=== PATIENT | male | born 1970 | race African-American/Black ===

== ENCOUNTER 2021-10-24 03:12 | Emergency (ER) | payer MEDICAID, OTHER ==
[~2021-10-24] VITALS: Ht 182.9 cm; Wt 97.1 kg
[2021-10-24 03:26] VITALS: BP 149/69
== END 2021-10-24 06:48 | disposition left against medical advice (07) ==
LOC: ER 03:12
DX: Z53.21 Procedure and treatment not carried out due to patient leaving prior to being seen by health care provider (principal)
CPT/HCPCS: 93005

== ENCOUNTER 2022-08-20 18:14 | Emergency (ER) | payer OTHER ==
[~2022-08-20] VITALS: Ht 185.4 cm; Wt 104.3 kg
[2022-08-20 18:21] VITALS: BP 134/91
[2022-08-20 18:51] LABS: BASOPHILS % 0.8 % (0.0-2.0); EOSINOPHILS % 6.5 % (0.0-5.0); HEMATOCRIT. 38.5 % (42.0-52.0); HEMOGLOBIN. 12.7 g/dL (14.0-18.0); LYMPHOCYTES % 48.8 % (20.0-50.0); MEAN CORPUSCULAR HEMOGLOBIN 27.6 pg (28.0-32.0); MEAN CORPUSCULAR VOLUME 83.6 fL (80.0-94.0); MEAN PLATELET VOLUME 9.5 fl (7.4-10.4); MONOCYTES % 10.8 % (2.0-8.0); NEUTROPHILS % 33.1 % (40.0-76.0); PLATELET 176 x1000/uL (130-400); RED CELL DISTRIBUTION WIDTH 15.5 % (11.6-14.6)
[2022-08-20 18:56] LABS: CHLORIDE 105 mEq/L (98-107)
[2022-08-20] MEDS ORDERED: FAMO-135 MT (22:36)
== END 2022-08-20 23:08 | disposition home or self-care (01) ==
LOC: ER 18:14
DX: R07.89 Other chest pain (principal); M25.511 Pain in right shoulder; I10 Essential (primary) hypertension
CPT/HCPCS: 36415; 71045; 80053; 84484; 85025; 93005; 99285

== ENCOUNTER 2022-10-28 14:58 | Emergency (ER) | payer OTHER ==
[~2022-10-28] VITALS: Ht 182.9 cm; Wt 105.0 kg
[~2022-10-28 14:58] MED LIST: FAMO-135 MT
[2022-10-28 15:11] VITALS: TEMP 98.7; O2SAT 99
[2022-10-28 15:45] VITALS: BP 122/83; PULSE 79; RESP 16
[2022-10-28] MEDS ORDERED: KETOROLAC 60MG/2ML VIAL IM ONE (15:45)
[2022-10-28] MEDS ORDERED: T3 PO (16:21)
[2022-10-28] MEDS ORDERED: MELO-105 MT (16:21)
== END 2022-10-28 17:39 | disposition home or self-care (01) ==
LOC: ER 14:58
DX: M25.562 Pain in left knee (principal); I10 Essential (primary) hypertension
CPT/HCPCS: 73560; 96372; 99283; J1885; Z7610; L1830

== ENCOUNTER 2022-12-22 09:17 | Emergency (ER) | payer OTHER ==
[~2022-12-22] VITALS: Ht 188 cm; Wt 100.0 kg
[~2022-12-22 09:17] MED LIST changes: +MELO-105 MT; +T3 PO
[2022-12-22 09:42] VITALS: O2SAT 98
[2022-12-22] MEDS ORDERED: ACETAMINOPHEN 325MG TABLET PO ONE (09:45)
[2022-12-22 10:05] LABS: CLARITY URINE TURBID (CLEAR); COLOR URINE ORANGE (YELLOW); GLUCOSE URINE NEGATIVE (NEGATIVE); KETONES URINE 1+ (NEGATIVE); LEUKOCYTE ESTERASE URINE 3+ (NEGATIVE); NITRITE URINE POSITIVE (NEGATIVE); OCCULT BLOOD URINE 3+ (NEGATIVE); PH URINE 6.5 (4.5-8.0); PROTEIN URINE 3+ (NEGATIVE); SPECIFIC GRAVITY URINE 1.028 (1.005-1.030)
[2022-12-22 10:29] LABS: BACTERIA URINE 4+; RBC URINE 50-100 /hpf (0-2); SQUAMOUS EPITHELIAL CELL URINE 1+ /lpf (RARE/1+); WBC URINE TNTC /hpf (0-2); YEAST URINE NONE SEEN
[2022-12-22] MEDS ORDERED: ACETAMINOPHEN 325MG TABLET PO NR (13:08)
[2022-12-22] MEDS ORDERED: IBUP-2029 MT (13:41)
[2022-12-22] MEDS ORDERED: CIPR-263 MT (13:41)
[2022-12-22 14:14] VITALS: BP 136/84; PULSE 85; RESP 18; TEMP 98.7
== END 2022-12-22 14:17 | disposition home or self-care (01) ==
LOC: ER 09:17
DX: N30.90 Cystitis, unspecified without hematuria (principal); E78.00 Pure hypercholesterolemia, unspecified; I10 Essential (primary) hypertension
CPT/HCPCS: 81003; 87077; 87186; 99283